=== PATIENT | female | born 1965 | race Hispanic/Latino ===

== ENCOUNTER → 2024-03-09 | Day surgery (SDC) | payer OTHER ==
[2024-03-07 10:09] LABS: BASOPHILS % 0.3 % (0.0-1.0); EOSINOPHILS # (AUTO) 0.1 (0.0-0.4); EOSINOPHILS % 0.6 % (0.0-6.0); HEMATOCRIT 36.3 % (34.2-44.1); HEMOGLOBIN 10.9 g/dL (12.0-16.0); LYMPHOCYTES # (AUTO) 1.6 (1.0-3.2); LYMPHOCYTES % 14.4 % (18.0-39.1); MEAN CORPUSCULAR HEMOGLOBIN 27.5 pg (28-32); MEAN CORPUSCULAR VOLUME 91.4 fL (81-99); MONOCYTES # (AUTO) 0.7 (0.2-0.8); MONOCYTES % 6.3 % (4.4-11.3); NEUTROPHILS # (AUTO) 8.6 (2.1-6.9); NEUTROPHILS % 78.1 % (38.7-80.0); PLATELET COUNT 281 x10e3/uL (140-360); RED BLOOD COUNT 3.97 x10e6/uL (3.6-5.1); RED CELL DISTRIBUTION WIDTH 14.6 % (11.7-14.4); WHITE BLOOD COUNT 10.96 x10e3/uL (4.8-10.8)
[~2024-03-09] MED LIST: ACETAMINOPHEN 1000 MG/100 ML 100 ML IV ONE; ACETAMINOPHEN 1000 MG/100 ML IV SCH; ASPIRIN 325 MG TAB PO SCH; CELECOXIB 100 MG CAP PO SCH; DAYPRO600 MG PO; DEXAMETHASONE SOD PHOS INJ 4 MG/ML SDV ONE; DIPHENHYDRAMINE HCL INJ 50 MG/ML VIAL IV PRN; DOCUSATE SODIUM 100 MG CAP PO PRN; EPHEDRINE SULFATE INJ 50 MG/ML VIAL ONE; FENTANYL CITRATE/PF 100MCG/2 ML INJ ONE; GABAPENTIN 300 MG CAP PO SCH; HYDROCODONE/APAP 7.5MG-325MG 1 EA TAB PO PRN; LIDOCAINE HCL 2% LOCAL INJ 5 ML SDV VIAL INJ ONE; LISINOPRIL10 MG PO; METHOTREXATE2.5 MG PO; Morphine 2mg Syringe 2 MG/ML SYR IV PRN; ONDANSETRON HCL INJ 2MG/ML 2ML 2 MG/ML VIAL IV PRN; ONDANSETRON HCL INJ 2MG/ML 2ML 2 MG/ML VIAL ONE; PREDNISONE5 MG PO; PROPOFOL IV EMULSION 10 MG/ML 20 ML VIAL ONE; ROPIVACAINE/EPI/CLONIDINE/KET 50 ML SYRINGE INJ ONE; SEVOFLURANE INHAL SOLN 250 ML PEN BTL ONE; SODIUM CHLORIDE 0.9% 1000ML 1,000 ML IV SCH
[2024-03-09] MEDS: CEFAZOLIN SODIUM 2 GM ONE (05:59)
[2024-03-09] MEDS: LACTATED RINGER'S 1,000 ML ONE (05:59)
[2024-03-09] MEDS: HYDROMORPHONE 1MG/1ML INJ ONE (09:16)
[2024-03-09 09:59] VITALS: BP 116/83; PULSE 73; RESP 18; O2SAT 98
== END | disposition home or self-care (01) ==
LOC: OR 05:29
PROVIDERS: ATTEND Orthopaedic Surgery Adult Reconstructive Orthopaedic Surgery
DX: M17.12 Unilateral primary osteoarthritis, left knee (principal); M06.9 Rheumatoid arthritis, unspecified; I10 Essential (primary) hypertension; E66.01 Morbid (severe) obesity due to excess calories; Z71.3 Dietary counseling and surveillance; Z71.82 Exercise counseling; F17.200 Nicotine dependence, unspecified, uncomplicated; Z71.6 Tobacco abuse counseling; Z01.810 Encounter for preprocedural cardiovascular examination; Z01.812 Encounter for preprocedural laboratory examination; Z79.899 Other long term (current) drug therapy; Z68.41 Body mass index [BMI] 40.0-44.9, adult
CPT/HCPCS: 27447; 36415; 73560; 85025; 86850; 86900; 93005; 97110; 97116; 97162; 97530; C1713; J0131; J1100; J1171; J2003; J2405; J2704; J3010; J7121

== ENCOUNTER 2024-05-03 07:00 | Observation (INO) | payer OTHER ==
[2024-05-01 11:45] LABS: BASOPHILS % 0.5 % (0.0-1.0); EOSINOPHILS # (AUTO) 0.1 (0.0-0.4); EOSINOPHILS % 1.6 % (0.0-6.0); HEMATOCRIT 34.5 % (34.2-44.1); LYMPHOCYTES # (AUTO) 2.4 (1.0-3.2); LYMPHOCYTES % 32.7 % (18.0-39.1); MEAN CORPUSCULAR HGB CONC 31.9 g/dL (31-35); MEAN CORPUSCULAR VOLUME 84.6 fL (81-99); MONOCYTES # (AUTO) 0.7 (0.2-0.8); MONOCYTES % 8.8 % (4.4-11.3); NEUTROPHILS # (AUTO) 4.1 (2.1-6.9); PLATELET COUNT 273 x10e3/uL (140-360); RED BLOOD COUNT 4.08 x10e6/uL (3.6-5.1); RED CELL DISTRIBUTION WIDTH 15.3 % (11.7-14.4)
[~2024-05-03] VITALS: Ht 170.2 cm; Wt 123.8 kg
[~2024-05-03 07:00] MED LIST changes: -ACETAMINOPHEN 1000 MG/100 ML 100 ML IV ONE; -ACETAMINOPHEN 1000 MG/100 ML IV SCH; -ASPIRIN 325 MG TAB PO SCH; -CELECOXIB 100 MG CAP PO SCH; -DEXAMETHASONE SOD PHOS INJ 4 MG/ML SDV ONE; -DIPHENHYDRAMINE HCL INJ 50 MG/ML VIAL IV PRN; -DOCUSATE SODIUM 100 MG CAP PO PRN; -EPHEDRINE SULFATE INJ 50 MG/ML VIAL ONE; -FENTANYL CITRATE/PF 100MCG/2 ML INJ ONE; -GABAPENTIN 300 MG CAP PO SCH; -HYDROCODONE/APAP 7.5MG-325MG 1 EA TAB PO PRN; -LIDOCAINE HCL 2% LOCAL INJ 5 ML SDV VIAL INJ ONE; -Morphine 2mg Syringe 2 MG/ML SYR IV PRN; -ONDANSETRON HCL INJ 2MG/ML 2ML 2 MG/ML VIAL IV PRN; -ONDANSETRON HCL INJ 2MG/ML 2ML 2 MG/ML VIAL ONE; -PROPOFOL IV EMULSION 10 MG/ML 20 ML VIAL ONE; -ROPIVACAINE/EPI/CLONIDINE/KET 50 ML SYRINGE INJ ONE; -SEVOFLURANE INHAL SOLN 250 ML PEN BTL ONE; -SODIUM CHLORIDE 0.9% 1000ML 1,000 ML IV SCH
[2024-05-03] MEDS ORDERED: ONDANSETRON HCL INJ 2MG/ML 2ML 2 MG/ML VIAL IV PRN (07:15)
[2024-05-03] MEDS: CEFAZOLIN SODIUM 2 GM ONE (07:41)
[2024-05-03] MEDS: LACTATED RINGER'S 1,000 ML ONE (07:42)
[2024-05-03] MEDS: ASPIRIN 325 MG TAB PO SCH (09:00)
[2024-05-03] MEDS: CELECOXIB 100 MG CAP PO SCH (09:00)
[2024-05-03] MEDS ORDERED: FENTANYL CITRATE/PF 100MCG/2 ML INJ ONE ×3 (09:14→13:15)
[2024-05-03] MEDS ORDERED: ACETAMINOPHEN 1000 MG/100 ML 0 ML IV ONE (09:14)
[2024-05-03] MEDS ORDERED: PROPOFOL IV EMULSION 10 MG/ML 20 ML VIAL ONE ×3 (09:14→13:15)
[2024-05-03] MEDS ORDERED: EPHEDRINE SULFATE INJ 50 MG/ML VIAL ONE (10:21)
[2024-05-03] MEDS: FENTANYL CITRATE/PF 100MCG/2 ML INJ ONE (12:32)
[2024-05-03] MEDS ORDERED: SEVOFLURANE INHAL SOLN 250 ML PEN BTL ONE (13:07)
[2024-05-03] MEDS ORDERED: ACETAMINOPHEN 1000 MG/100 ML 100 ML IV ONE (13:15)
[2024-05-03] MEDS ORDERED: LIDOCAINE HCL 2% LOCAL INJ 5 ML SDV VIAL INJ ONE (13:15)
[2024-05-03] MEDS ORDERED: MIDAZOLAM HCL 2 MG/2 ML VIAL ONE (13:23)
[2024-05-03 17:50] VITALS: BP 143/62; PULSE 71; RESP 20; TEMP 97.9; O2SAT 99
[2024-05-03 18:05] VITALS: BP 143/62; PULSE 71; RESP 20; TEMP 97.9; O2SAT 99
[2024-05-03] MEDS: ASPIRIN 325 MG TAB ONE (18:38)
[2024-05-03] MEDS: ROPIVACAINE/EPI/CLONIDINE/KET 50 ML SYRINGE INJ ONE (18:38)
[2024-05-03] MEDS: CELECOXIB 200 MG CAP ONE (18:39)
[2024-05-03 19:20] VITALS: PULSE 70; RESP 16; O2SAT 98
[2024-05-03 20:00] VITALS: BP 132/58; PULSE 77; RESP 20; TEMP 98; O2SAT 99
[2024-05-03 21:00] VITALS: BP 132/58; PULSE 77; RESP 20; TEMP 98; O2SAT 98
[2024-05-04] VITALS (7 sets, daily range): BP systolic 99–111; BP diastolic 46–66; PULSE 54–76; RESP 18–20; TEMP 97.6–98.1; O2SAT 96–100
[2024-05-04] MEDS ORDERED: DIPHENHYDRAMINE HCL 25 MG CAP PO PRN (01:30)
[2024-05-04] MEDS ORDERED: HYDRALAZINE HCL 20 MG/ML VIAL IV PRN (01:30)
[2024-05-04] MEDS ORDERED: POTASSIUM CHLORIDE 20 MEQ TAB CR PO PRN (01:30)
[2024-05-04] MEDS ORDERED: ALBUTEROL/IPRATROPIUM 3 ML NEB NEB PRN (01:30)
[2024-05-04] MEDS ORDERED: BENZONATATE 100 MG CAP PO PRN (01:30)
[2024-05-04] MEDS ORDERED: SIMETHICONE 80 MG CHEW PO PRN (01:30)
[2024-05-04] MEDS ORDERED: ACETAMINOPHEN 325 MG TAB PO PRN (01:30)
[2024-05-04] MEDS ORDERED: DEXTROSE 50% SYRINGE 50 ML IV PRN (01:30)
[2024-05-04] MEDS ORDERED: DOCUSATE SODIUM 100 MG CAP PO PRN (01:30)
[2024-05-04] MEDS ORDERED: MELATONIN 5 MG TABLET PO PRN (01:30)
[2024-05-04 05:34] LABS: HEMATOCRIT 29.9 % (34.2-44.1); HEMOGLOBIN 9.4 g/dL (12.0-16.0)
[2024-05-04 05:59] LABS: ANION GAP 15.4 mmol/L (8-16); CALCIUM 8.6 mg/dL (8.4-10.2); CREATININE, SERUM 0.95 mg/dL (0.57-1.11); POTASSIUM 4.4 mmol/L (3.5-5.1)
[2024-05-04] MEDS: LISINOPRIL 10 MG TAB PO SCH (09:00)
[2024-05-04] MEDS: PANTOPRAZOLE SOD 40 MG TABEC PO SCH (09:36)
[2024-05-04] MEDS: HYDROCODONE/APAP 7.5MG-325MG 1 EA TAB PO PRN (09:39)
[2024-05-04] MEDS ORDERED: LIDOCAINE 4% PATCH TP PRN (10:00)
[2024-05-04] MEDS: ASPIRIN 81 MG ENTERIC COATED PO SCH (11:25)
[2024-05-04] MEDS ORDERED: ASPIRIN EC81 MG PO (15:38)
[2024-05-04] MEDS ORDERED: ASPIRIN 81 MG ENTERIC COATED PO SCH (17:00)
[2024-05-04] MEDS ORDERED: ENOXAPARIN SOD INJ 40 MG/0.4 ML SYR SC SCH (17:00)
== END 2024-05-04 16:18 | disposition home or self-care (01) ==
LOC: OR 07:00 → PACU V 07:11 → MED/SURG 17:17
PROVIDERS: ADMIT Internal Medicine; ATTEND Internal Medicine
DX: M17.11 Unilateral primary osteoarthritis, right knee (principal); E66.01 Morbid (severe) obesity due to excess calories; Z68.41 Body mass index [BMI] 40.0-44.9, adult; I10 Essential (primary) hypertension; M06.9 Rheumatoid arthritis, unspecified; Z01.812 Encounter for preprocedural laboratory examination
CPT/HCPCS: 27447; 36415 ×2; 73560; 80048; 85014; 85018; 85025; 86850; 86900; 94799 ×2; 97110 ×2; 97116; 97162; 97530 ×2; C1713; C1776 ×5; G0378 ×2; J0131; J0690 ×2; J2470; J2704; J3010; J7121; J2003; J2250